=== PATIENT | male | born 1940 | race Caucasian/White ===

== ENCOUNTER 2017-09-28 15:26 | Outpatient (CLI) | payer MEDICARE, OTHER ==
--- NOTE | 2017-09-28 21:11 | MRI ---
LUMBAR SPINE MRI WITHOUT CONTRAST 09/28/17 COMPARISON: None. HISTORY: Lumbar spondylolisthesis. TECHNIQUE: Multiplanar and multisequence MR imaging of the lumbar spine is obtained without contrast. FINDINGS: The sagittal STIR imaging demonstrates no focal area of osseous marrow edema. There is a T2 hyperintense, T1 hypointense circumscribed lesion associated with the sacrum on the ri ght measuring 2.2 x 2.1 cm, extending into the region of the right S2 neural foramen suggesting a pr ominent perineural sleeve cyst/Tarlov cyst. There is a sigmoid diverticulosis, incompletely imaged o n this exam. Assuming five lumbar type vertebral bodies, the conus medullaris terminates at the T12-L1 level. T12-L1: There is mild bilateral facet hypertrophy. Intervertebral disc height and signal intensity i s within normal limits. No significant central canal or neural foraminal stenosis. L1-2: Mild bilateral facet hypertrophy. There is disc desiccation and minimal disc bulge with no sig nificant central canal or neural foraminal stenosis. L2-3: There is mild bilateral facet hypertrophy. There is minimal disc bulge with no significant chela tral canal or neural foraminal stenosis. L3-4: Bilateral facet hypertrophy noted, right greater than left. There is disc space narrowing, dis c desiccation and mild disc bulge with no significant central canal or neural foraminal stenosis. L4-5: There is anterolisthesis of L4 on L5 measuring approximately 6 mm. There is severe bilateral f acet hypertrophy with fluid within bilateral facet joints at L4-5. There is marked ligamentum flavum hypertrophy. These findings cause severe central canal stenosis at L4-5. There is moderate bilatera l neural foraminal stenosis. L5-S1: There is disc space narrowing and disc desiccation and vacuum disc formation. Bilateral facet hypertrophy. Mild bilateral neural foraminal stenosis. No significant central canal stenosis. IMPRESSION: 1. Multilevel lumbar spine degenerative change, most significant at the L4-5 level where there is severe facet hypertrophy, including facet joint fluid as well as anterolisthesis and severe centr al canal stenosis. Fluid within the facet joints at L4-5 may represent instability and thus, flexion and extension radiographs suggested. 2. Diverticulosis of sigmoid colon. 3. 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 POS: [facility]
== END 2017-09-28 15:27 | disposition home or self-care (01) ==
LOC: SCSMRI 15:26
PROVIDERS: ATTEND Neurological Surgery
DX: M43.16 Spondylolisthesis, lumbar region (principal); M47.816 Spondylosis without myelopathy or radiculopathy, lumbar region; M48.061 Spinal stenosis, lumbar region without neurogenic claudication; K57.30 Diverticulosis of large intestine without perforation or abscess without bleeding
CPT/HCPCS: 72148

== ENCOUNTER 2017-12-27 11:00 | Inpatient (IN) | payer MEDICARE, OTHER ==
[2018-01-02] MEDS ORDERED: CEFAZOLIN/Water 2 GM/20 ML SYRINGE ONE (06:33)
[2018-01-02] MEDS ORDERED: Fentanyl 100 MCG/2 ML VIAL ONE ×5 (06:41→10:42)
[2018-01-02] MEDS ORDERED: Sodium Chloride 0.9% 10 ML ONE (06:42)
[2018-01-02] MEDS ORDERED: Promethazine HCl 25 MG/ML VIAL IM/IV PRN (09:37)
[2018-01-02] MEDS ORDERED: Ondansetron HCl/PF 4 MG/2 ML Vial IVP PRN (09:37)
[2018-01-02] MEDS ORDERED: Mag-Al 1200 mg/1200 mg/30 ML UDCUP PO PRN (10:20)
[2018-01-02] MEDS ORDERED: tiZANidine HCl 4 MG TAB PO PRN (10:20)
[2018-01-02] MEDS ORDERED: Promethazine 25 MG TAB PO PRN (10:20)
[2018-01-02] MEDS ORDERED: Milk Of Magnesia 30 ML UDCUP PO PRN (10:20)
[2018-01-02] MEDS ORDERED: Promethazine HCl 12.5 MG SUPP PR PRN (10:20)
[2018-01-02] MEDS ORDERED: HYDROcodone/Acetaminophen 10/325 mg Tablet PO PRN (10:20)
[2018-01-02] MEDS ORDERED: traMADol HCl 50 MG TAB PO PRN ×2 (10:20)
[2018-01-02] MEDS ORDERED: Promethazine HCl 25 MG/ML VIAL IM PRN (10:20)
[2018-01-02] MEDS ORDERED: Ondansetron HCl/PF 4 MG/2 ML Vial IM PRN (10:21)
[2018-01-02] MEDS ORDERED: Morphine 5 MG/ML SYRINGE SLOW IVP PRN (10:25)
--- NOTE | 2018-01-02 11:26 | OP ---
DATE OF PROCEDURE: 01/02/2018 SURGEON: Star Person M.D. QUENCHING MACHINE OPERATOR: Osbaldo Lilly PA-C. PROCEDURES PERFORMED: L4-l5 laminectomy, posterolateral arthrodesis, pedicle screw instrumentation L 4-L5, demineralized bone matrix and local morselized autograft. PROCEDURE IN DETAIL: The patient was brought into the operating room, intubated. He was rolled in t he prone position on gel-filled chest rolls. An incision was made exposing L4 and L5 bilaterally and our level was confirmed by x-ray. We performed complete L5 and inferior L4 laminectomies, completel y decompressing L4-L5 interspace. Next, pedicle screws were placed at right L4 and right L5 using la teral fluoroscopic guidance. A maria del rosario was secured between the screws, connected by nuts, which were fin al tightened. The wound was then extensively irrigated, immaculate hemostasis was secured. A combin ation of demineralized bone matrix and local morselized autograft was laid over the left laminar and posterolateral surfaces for the purpose of arthrodesis. Vancomycin powder was applied and the wound was then closed in anatomic layers over a drain.
[2018-01-02 12:09] VITALS: BMI 25.9
[2018-01-02] MEDS ORDERED: Citrucel 500 MG TAB PO PRN (12:11)
--- NOTE | 2018-01-02 13:22 | PDOC.PN ---
- Subjective Encounter Start Date: 01/02/18 Encounter Start Time: 13:19 Subjective: s/p Lumbar laminectomy today.POD # 0.feels well -: no chest pain,sob,nausea/vomiting - Objective MAR Reviewed: Yes Vital Signs & Weight: Vital Signs (12 hours) Temp Pulse Resp BP Pulse Ox 01/02/18 11:05 96.5 F L 80 18 131/69 98 Weight Weight 171 lb I&O: 01/01/18 01/02/18 01/03/18 06:59 06:59 06:59 Intake Total 375 Balance 375 Phys Exam - Physical Examination Constitutional: NAD HEENT: PERRLA, moist MMs, sclera anicteric, oral pharynx no lesions Neck: no nodes, no JVD, supple, full ROM Respiratory: no wheezing, no rales, no rhonchi, clear to auscultation bilateral Cardiovascular: RRR, no significant murmur Gastrointestinal: soft, non-tender, no distention, positive bowel sounds Musculoskeletal: no edema, pulses present Neurological: non-focal, normal sensation, moves all 4 limbs Psychiatric: normal affect, A&O x 3 Skin: no rash Dx/Plan (1) HTN (hypertension) Code(s): I10 - ESSENTIAL (PRIMARY) HYPERTENSION Status: Chronic (2) Hypothyroid Code(s): E03.9 - HYPOTHYROIDISM, UNSPECIFIED Status: Chronic (3) S/P lumbar laminectomy Code(s): Z98.890 - OTHER SPECIFIED POSTPROCEDURAL STATES Status: Acute (4) COPD (chronic obstructive pulmonary disease) Status: Chronic - Plan out of bed/ambulate, DVT proph w/SCDs cont routine post-op care.Hemodynamically stable. -: cont home meds as started.pt wants to take his own. -: Check am labs. -: DVT/GI prophylaxis.Prn meds added. -: will follow * . Review of Systems - Review of Systems Constitutional: negative: fever, chills, sweats, weakness, malaise, other Respiratory: negative: Cough, Dry, Shortness of Breath, Hemoptysis, SOB with Excertion, Pleuritic Pain, Sputum, Wheezing Cardiovascular: negative: chest pain, palpitations, orthopnea, paroxysmal nocturnal dyspnea, edema, light headedness, other Gastrointestinal: negative: Nausea, Vomiting, Abdominal Pain, Diarrhea, Constipation, Melena, Hematochezia, Other Genitourinary: negative: Dysuria, Frequency, Incontinence, Hematuria, Retention , Other Musculoskeletal: negative: Neck Pain, Shoulder Pain, Arm Pain, Back Pain, Hand Pain, Leg Pain, Foot Pain, Other Skin: negative: Rash, Lesions, Gregg, Bruising, Other Neurological: negative: Weakness, Numbness, Incoordination, Change in Speech, Confusion, Seizures, Other - Medications/Allergies Allergies/Adverse Reactions: Allergies Allergy/AdvReac Type Severity Reaction Status Date / Time No Known Allergies Allergy Verified 12/27/17 12:00 Medications: Current Medications Hydrocodone Bitart/Acetaminophen ([place] 10/325) 1 tab PO Q4H PRN PRN Reason: PAIN (1-3) Hydrocodone Bitart/Acetaminophen ([place] 10/325) 2 tab PO Q4H PRN PRN Reason: PAIN (4-6) Al Hydroxide/Mg Hydroxide (Maalox) 30 ml PO Q4H PRN PRN Reason: Heartburn or Indigestion Albuterol/Ipratropium (Duoneb) 3 ml NEB [id number] [id number] Last Admin: 01/02/18 13:24 Dose: 3 ml Amlodipine Besylate (Norvasc) 20 mg PO HS [facility] Ascorbic Acid (Vitamin C) 500 mg PO HS [facility] Calcium/Vitamin D (Caltrate 600 + Vit D) 2 tab PO HS [facility] Cefazolin Sodium (Ancef) 2 gm SLOW IVP 0800,1600,2359 [facility] Sodium Chloride (Normal Saline 0.9%) 1,000 mls @ 75 mls/hr IV .[id number] [facility] Iron/Minerals/Multivitamins (Theragran M) 1 tab PO HS [facility] Latanoprost (Xalatan 0.005% Ophth Soln) 1 drop EA EYE HS [facility] Levothyroxine Sodium (Synthroid) 50 mcg PO 0600 [facility] Magnesium Hydroxide (Milk Of Magnesium) 30 ml PO Q12H PRN PRN Reason: Constipation Methylcellulose (Citrucel) 500 mg PO DAILYPRN PRN PRN Reason: . Morphine Sulfate (Morphine) 2 mg SLOW IVP Q1H PRN PRN Reason: Moderate Breakthrough Pain Morphine Sulfate (Morphine) 4 mg SLOW IVP Q1H PRN PRN Reason: Severe Breakthrough Pain Ondansetron HCl (Zofran) 4 mg IM Q6H PRN PRN Reason: Nausea/Vomiting Pantoprazole Sodium (Protonix) 40 mg PO BID-AC [facility] Potassium Chloride (Slow-K 8 Meq) 8 meq PO HS [facility] Promethazine HCl (Phenergan) 12.5 mg IM Q4H PRN PRN Reason: Nausea/Vomiting Promethazine HCl (Phenergan) 12.5 mg PO Q4H PRN PRN Reason: Nausea/Vomiting Promethazine HCl (Phenergan Suppository) 12.5 mg [place] Q4H PRN PRN Reason: Nausea/Vomiting Sodium Chloride (Flush - Normal Saline) 10 ml IVF PRN PRN PRN Reason: Saline Flush Tamsulosin HCl (Flomax) 0.4 mg PO HS [facility] Timolol Maleate (Timoptic 0.25% Oph Soln) 1 drop EA EYE BID [facility] Tizanidine HCl (Zanaflex) 4 mg PO Q6H PRN PRN Reason: MUSCLE SPASM Tramadol HCl (Ultram) 50 mg PO Q6H PRN PRN Reason: PAIN (1-3) Tramadol HCl (Ultram) 100 mg PO Q6H PRN PRN Reason: PAIN (4-6) History of Present Illnes - History of Present Illness Reason for Visit: Back pain. History of Present Illness: Pt seen and examined.s/p lumbar laminectomy by Dr. avalos today.IM team consulted for medical management. PCP out of town in [place] - Past Medical History Cardiac: HTN Pulmonary: COPD Endocrine: Hypothyroidism - Past Surgical History Past Surgical History: Cataract Removal, Other (deviated nasal septum.rotator cuff Sx B/L), Total Knee Replacement - Past Family History Family History: Hypertension - Past Social History Smoke: Quit (1985) Alcohol: None Drugs: None Lives: With Family
[2018-01-02] MEDS ORDERED: Diabetic Tussin 200 MG/10 ML UDCUP PO PRN (13:34)
[2018-01-02] MEDS ORDERED: Bisacodyl 5 MG TAB PO PRN (13:34)
[2018-01-02] MEDS ORDERED: hydrALAZINE 20 MG/ML VIAL SLOW IVP PRN (13:34)
[2018-01-02] MEDS ORDERED: Nitroglycerin 0.4 MG TAB (25 Tab Bottle) SL PRN (13:34)
[2018-01-02] MEDS ORDERED: cloNIDine 0.1 MG TAB PO PRN (13:34)
[2018-01-02] MEDS ORDERED: Senokot 8.6 MG TAB PO PRN (13:34)
[2018-01-02] MEDS ORDERED: Benzonatate 100 MG CAP PO PRN (13:34)
[2018-01-02] MEDS ORDERED: traZODone HCl 50 MG TAB PO PRN (13:34)
[2018-01-02] MEDS ORDERED: Loratadine 10 MG TAB PO PRN (13:34)
[2018-01-02] MEDS: HYDROcodone/Acetaminophen 10/325 mg Tablet PO PRN ×2 (13:41→18:05)
[2018-01-02] MEDS: Sodium Chloride 0.9% 1,000 ML IV SCH ×2 (13:44→23:57)
[2018-01-02] MEDS ORDERED: Ondansetron HCl/PF 4 MG/2 ML Vial ONE (15:25)
[2018-01-02] MEDS ORDERED: ePHEDrine/0.9% NaCl/PF SYRINGE 50 mg/10 ml ONE (15:25)
[2018-01-02] MEDS ORDERED: PHENYLEPHRINE-NS 100 MCG/ML 10 ML SYRINGE ONE (15:25)
[2018-01-02] MEDS ORDERED: Dexamethasone 20 MG/5 ML VIAL ONE (15:25)
[2018-01-02] MEDS ORDERED: Glycopyrrolate 0.2 MG/ML 5 ML SYRINGE ONE (15:25)
[2018-01-02] MEDS ORDERED: Lidocaine 1% PF 5 ML VIAL ONE (15:25)
[2018-01-02] MEDS ORDERED: PROPOFOL 200 MG/20 ML VIAL ONE (15:25)
[2018-01-02] MEDS: CEFAZOLIN/Water 2 GM/20 ML SYRINGE SLOW IVP SCH (17:12)
[2018-01-02] MEDS ORDERED: Multivitamin W/ Minerals 1 TAB PO SCH (21:00)
[2018-01-02] MEDS ORDERED: Calcium Carbonate + Vit D 1 TAB PO SCH (21:00)
[2018-01-02] MEDS ORDERED: Potassium Chloride 8 MEQ TAB PO SCH (21:00)
[2018-01-02] MEDS ORDERED: Latanoprost 0.005% Ophth Soln 2.5 ml Bottle EA EYE SCH (21:00)
[2018-01-02] MEDS ORDERED: Amlodipine 10 MG TAB PO SCH (21:00)
[2018-01-02] MEDS ORDERED: Ascorbic Acid 500 mg Chewable Tablet PO SCH (21:00)
[2018-01-02] MEDS ORDERED: Tamsulosin HCl 0.4 MG CAP PO SCH (21:00)
[2018-01-02] MEDS ORDERED: Melatonin 3 MG TAB PO SCH (21:00)
[2018-01-02] MEDS: Timolol 0.25% Ophth Soln 5 ml Bottle EA EYE SCH (21:21)
[2018-01-03] MEDS: CEFAZOLIN/Water 2 GM/20 ML SYRINGE SLOW IVP SCH ×2 (00:15→08:30)
[2018-01-03] MEDS ORDERED: Levothyroxine Sodium 50 MCG TAB PO SCH (06:00)
[2018-01-03] MEDS: Timolol 0.25% Ophth Soln 5 ml Bottle EA EYE SCH (08:32)
[2018-01-03 09:52] LABS: ALT (SGPT) 8 U/L (8-55); AST (SGOT) 19 U/L (5-34); Albumin 3.6 g/dL (3.4-4.8); Alkaline Phosphatase 53 U/L (40-150); Anion Gap 14 mmol/L (10-20); BUN (Urea Nitrogen) 17 mg/dL (8.4-25.7); Bilirubin, Total 0.6 mg/dL (0.2-1.2); Calc. Creatinine Clearance 76 mL/min (70-130); Calcium 8.9 mg/dL (7.8-10.44); Carbon Dioxide 24 mmol/L (23-31); Chloride 102 mmol/L (98-107); Estimated GFR-MDRD 86; Globulin 2.4 g/dL (2.4-3.5); Glucose 113 mg/dL (83-110); Potassium 4.6 mmol/L (3.5-5.1); Sodium 135 mmol/L (136-145)
[2018-01-03 09:54] LABS: #Lymphocytes 0.9 thou/uL (1.20-3.40); #Monocytes 0.7 thou/uL (0.11-0.59); %Basophils 0.1 % (0.0-1.0); %Eosinophils 0.3 % (0.0-10.0); %Monocytes 7.8 % (0.0-10.0); %Neutrophils 81.8 % (42.0-75.0); Hemoglobin 12.8 g/dL (14.0-18.0); Mean Corpuscular HGB CONC 32.9 g/dL (32.0-36.0); Mean Corpuscular Hemoglobin 32.5 pg (27.0-31.0); Mean Corpuscular Volume 98.9 fl (80.0-94.0); Mean Platelet Volume 8.9 fL (7.4-10.4); Platelet Count 141 thou/uL (130-400); RBC Distribution Width 12.1 % (11.5-14.5); Red Blood Cell (RBC) Count 3.93 mill/uL (4.70-6.10); White Blood Cell (WBC) Count 8.5 thou/uL (4.8-10.8)
[2018-01-03] MEDS ORDERED: Enoxaparin Sodium 40 MG/0.4 ML SYRINGE SC SCH (10:00)
[2018-01-03] MEDS: Sodium Chloride 0.9% 1,000 ML IV SCH (12:11)
[2018-01-03 12:41] VITALS: BP 117/68; TEMP 98.4
--- NOTE | 2018-01-03 14:25 | PDOC.PN ---
- Subjective Encounter Start Date: 01/03/18 Encounter Start Time: 14:23 Subjective: no new complaints. -: has still a " lot of discharge coming out in BARB drain" - Objective MAR Reviewed: Yes Vital Signs & Weight: Vital Signs (12 hours) Temp Pulse Resp BP Pulse Ox 01/03/18 12:40 98.4 F 82 16 117/68 98 01/03/18 12:03 90 14 01/03/18 08:00 97.5 F L 73 18 01/03/18 07:33 89 14 98 01/03/18 04:50 98.8 F 78 18 125/74 95 Weight Admit Weight 171 lb Weight 171 lb I&O: 01/02/18 01/03/18 01/04/18 06:59 06:59 06:59 Intake Total 2575 Output Total 1485 100 Balance 1090 -100 Result Diagrams: 01/03/18 09:22 01/03/18 09:22 Radiology Reviewed by me: Yes Phys Exam - Physical Examination Constitutional: NAD HEENT: PERRLA, moist MMs, sclera anicteric, oral pharynx no lesions Neck: no nodes, no JVD, supple, full ROM Respiratory: no wheezing, no rales, no rhonchi, clear to auscultation bilateral Cardiovascular: RRR, no significant murmur Gastrointestinal: soft, non-tender, no distention, positive bowel sounds Musculoskeletal: no edema, pulses present Neurological: non-focal, normal sensation, moves all 4 limbs Psychiatric: normal affect, A&O x 3 Skin: no rash Dx/Plan (1) HTN (hypertension) Code(s): I10 - ESSENTIAL (PRIMARY) HYPERTENSION Status: Chronic (2) Hypothyroid Code(s): E03.9 - HYPOTHYROIDISM, UNSPECIFIED Status: Chronic (3) S/P lumbar laminectomy Code(s): Z98.890 - OTHER SPECIFIED POSTPROCEDURAL STATES Status: Acute (4) COPD (chronic obstructive pulmonary disease) Status: Chronic - Plan respiratory therapy, incentive spirometry, out of bed/ambulate, DVT proph w/SCDs HD stable. BP controlled -: monitor BARB drainage per NS * . Review of Systems - Review of Systems Constitutional: negative: fever, chills, sweats, weakness, malaise, other Respiratory: negative: Cough, Dry, Shortness of Breath, Hemoptysis, SOB with Excertion, Pleuritic Pain, Sputum, Wheezing Cardiovascular: negative: chest pain, palpitations, orthopnea, paroxysmal nocturnal dyspnea, edema, light headedness, other Gastrointestinal: negative: Nausea, Vomiting, Abdominal Pain, Diarrhea, Constipation, Melena, Hematochezia, Other Genitourinary: negative: Dysuria, Frequency, Incontinence, Hematuria, Retention , Other Musculoskeletal: negative: Neck Pain, Shoulder Pain, Arm Pain, Back Pain, Hand Pain, Leg Pain, Foot Pain, Other Neurological: negative: Weakness, Numbness, Incoordination, Change in Speech, Confusion, Seizures, Other - Medications/Allergies Allergies/Adverse Reactions: Allergies Allergy/AdvReac Type Severity Reaction Status Date / Time No Known Allergies Allergy Verified 12/27/17 12:00 Medications: Current Medications Hydrocodone Bitart/Acetaminophen ([place] 10/325) 1 tab PO Q4H PRN PRN Reason: PAIN (1-3) Last Admin: 01/02/18 18:05 Dose: 1 tab Hydrocodone Bitart/Acetaminophen ([place] 10/325) 2 tab PO Q4H PRN PRN Reason: PAIN (4-6) Al Hydroxide/Mg Hydroxide (Maalox) 30 ml PO Q4H PRN PRN Reason: Heartburn or Indigestion Albuterol/Ipratropium (Duoneb) 3 ml NEB [id number] [facility] Last Admin: 01/03/18 12:03 Dose: 3 ml Amlodipine Besylate (Norvasc) 20 mg PO [facility] Last Admin: 01/02/18 21:17 Dose: Not Given Ascorbic Acid (Vitamin C) 500 mg PO [facility] Last Admin: 01/02/18 21:20 Dose: Not Given Benzonatate (Tessalon) 100 mg PO Q4H PRN PRN Reason: Cough Bisacodyl (Dulcolax) 10 mg PO DAILYPRN PRN PRN Reason: Constipation Calcium/Vitamin D (Caltrate 600 + Vit D) 2 tab PO [facility] Last Admin: 01/02/18 21:20 Dose: Not Given Cefazolin Sodium (Ancef) 2 gm SLOW IVP 0800,1600,2359 [facility] Last Admin: 01/03/18 08:30 Dose: 2 gm Clonidine (Catapres) 0.1 mg PO Q4H PRN PRN Reason: Systolic BP > 160 Enoxaparin Sodium (Lovenox) 40 mg SC 0900 [facility] Guaifenesin (Robitussin Sf) 200 mg PO Q4H PRN PRN Reason: Cough Hydralazine HCl (Apresoline) 10 mg SLOW IVP Q4H PRN PRN Reason: Systolic BP > 170 Sodium Chloride (Normal Saline 0.9%) 1,000 mls @ 75 mls/hr IV .[id number] [facility] Last Admin: 01/03/18 12:11 Dose: Not Given Iron/Minerals/Multivitamins (Theragran M) 1 tab PO [facility] Last Admin: 01/02/18 21:21 Dose: Not Given Latanoprost (Xalatan 0.005% [facility] Sol) 1 drop EA EYE [facility] Last Admin: 01/02/18 21:21 Dose: Not Given Levothyroxine Sodium (Synthroid) 50 mcg PO 0600 [facility] Last Admin: 01/03/18 06:17 Dose: Not Given Loratadine (Claritin) 10 mg PO DAILYPRN PRN PRN Reason: Sinus Symptoms Magnesium Hydroxide (Milk Of Magnesium) 30 ml PO Q12H PRN PRN Reason: Constipation Methylcellulose (Citrucel) 500 mg PO DAILYPRN PRN PRN Reason: . Morphine Sulfate (Morphine) 2 mg SLOW IVP Q1H PRN PRN Reason: Moderate Breakthrough Pain Morphine Sulfate (Morphine) 4 mg SLOW IVP Q1H PRN PRN Reason: Severe Breakthrough Pain Nitroglycerin (Nitrostat) 0.4 mg SL Q5MIN PRN PRN Reason: Chest Pain Ondansetron HCl (Zofran) 4 mg IM Q6H PRN PRN Reason: Nausea/Vomiting Pantoprazole Sodium (Protonix) 40 mg PO BID-AC [facility] Last Admin: 01/03/18 08:31 Dose: Not Given Potassium Chloride (Slow-K 8 Meq) 8 meq PO [facility] Last Admin: 01/02/18 21:21 Dose: Not Given Promethazine HCl (Phenergan) 12.5 mg IM Q4H PRN PRN Reason: Nausea/Vomiting Promethazine HCl (Phenergan) 12.5 mg PO Q4H PRN PRN Reason: Nausea/Vomiting Promethazine HCl (Phenergan Suppository) 12.5 mg AR Q4H PRN PRN Reason: Nausea/Vomiting Senna (Senokot) 2 tab PO HSPRN PRN PRN Reason: Constipation Sodium Chloride (Flush - Normal Saline) 10 ml IVF PRN PRN PRN Reason: Saline Flush Last Admin: 01/03/18 00:15 Dose: 10 ml Tamsulosin HCl (Flomax) 0.4 mg PO [facility] Last Admin: 01/02/18 21:21 Dose: Not Given Timolol Maleate (Timoptic 0.25% Oph Soln) 1 drop EA EYE BID [facility] Last Admin: 01/03/18 08:32 Dose: Not Given Tizanidine HCl (Zanaflex) 4 mg PO Q6H PRN PRN Reason: MUSCLE SPASM Last Admin: 01/02/18 15:06 Dose: 4 mg Tramadol HCl (Ultram) 50 mg PO Q6H PRN PRN Reason: PAIN (1-3) Tramadol HCl (Ultram) 100 mg PO Q6H PRN PRN Reason: PAIN (4-6) Trazodone HCl (Desyrel) 50 mg PO HSPRN PRN PRN Reason: Insomnia
[2018-01-04] MEDS ORDERED: Enoxaparin Sodium 40 MG/0.4 ML SYRINGE SC SCH (09:00)
== END 2018-01-03 15:42 | disposition home or self-care (01) | DRG 460 ==
LOC: SURG A 01-02 05:59
PROVIDERS: ADMIT Neurological Surgery; ATTEND Neurological Surgery
PROC: 0SG0071 Fusion of Lumbar Vertebral Joint with Autologous Tissue Substitute, Posterior Approach, Posterior Column, Open Approach (ICD-10-PCS; principal; 2018-01-02)
DX: M43.06 Spondylolysis, lumbar region (principal); J44.9 Chronic obstructive pulmonary disease, unspecified; E03.9 Hypothyroidism, unspecified; I10 Essential (primary) hypertension; M48.061 Spinal stenosis, lumbar region without neurogenic claudication; K21.9 Gastro-esophageal reflux disease without esophagitis; M19.90 Unspecified osteoarthritis, unspecified site; N40.0 Benign prostatic hyperplasia without lower urinary tract symptoms; Z87.891 Personal history of nicotine dependence
CPT/HCPCS: 36415; 76001; 80053; 85025; 94640; A4216; C1713; C1768; G8978-GP-CI; G8979-GP-CI; G8980-GP-CI; J1100; J1650; J2001; J2405; J2704; J3010; J3370; J3490; J7620

== ENCOUNTER 2017-12-27 11:27 | Outpatient (CLI) | payer MEDICARE, OTHER ==
[2017-12-27 14:43] LABS: Hemoglobin 15.3 g/dL (14.0-18.0); Mean Corpuscular HGB CONC 33.1 g/dL (32.0-36.0); Mean Corpuscular Hemoglobin 31.8 pg (27.0-31.0); Mean Platelet Volume 7.4 fL (7.4-10.4); Platelet Count 266 thou/uL (130-400); RBC Distribution Width 11.8 % (11.5-14.5); Red Blood Cell (RBC) Count 4.82 mill/uL (4.70-6.10); White Blood Cell (WBC) Count 7.4 thou/uL (4.8-10.8)
[2017-12-27 15:47] LABS: Anion Gap 14 mmol/L (10-20); BUN (Urea Nitrogen) 25 mg/dL (8.4-25.7); Calc. Creatinine Clearance 0 mL/min (70-130); Calcium 9.9 mg/dL (7.8-10.44); Carbon Dioxide 25 mmol/L (23-31); Chloride 102 mmol/L (98-107); Estimated GFR-MDRD 77; Glucose 95 mg/dL (83-110); Potassium 4.3 mmol/L (3.5-5.1); Sodium 137 mmol/L (136-145)
== END 2017-12-27 11:28 | disposition home or self-care (01) ==
LOC: LABBT 11:27
PROVIDERS: ATTEND Neurological Surgery
DX: Z01.818 Encounter for other preprocedural examination (principal); M54.16 Radiculopathy, lumbar region
CPT/HCPCS: 80048; 85027; 93005; 93010

== ENCOUNTER 2018-01-17 11:08 | Outpatient (CLI) | payer MEDICARE, OTHER ==
--- NOTE | 2018-01-17 13:28 | RAD ---
RADIOGRAPH LUMBAR SPINE 2 VIEWS: DATE: 01-17-18 HISTORY: 77-year-old male with lumbar spondylolisthesis and low back pain. COMPARISON: None. FINDINGS: There are 5 lumbar type vertebrae. Vertebral body heights are maintained. There are right unilateral right sided pedicle screws at L4 and L5. There is a midline laminectomy defect at L4-5. Grade I anter olisthesis of L4 on L5. Moderate disc space narrowing at L5-S1. The rest of the disc spaces are maint ained. IMPRESSION: 1. Unilateral right pedicle screws for stabilization of Grade I spondylolisthesis at L4-5. 2. Status post midline laminectomy at L4-5. ALFREDO POS: [facility]
== END 2018-01-17 11:09 | disposition home or self-care (01) ==
LOC: TBSIIMAG 11:08
PROVIDERS: ATTEND Physician Assistant
DX: M43.16 Spondylolisthesis, lumbar region (principal); Z98.1 Arthrodesis status
CPT/HCPCS: 72100

== ENCOUNTER 2018-03-02 15:06 | Outpatient (CLI) | payer MEDICARE, OTHER ==
--- NOTE | 2018-03-02 16:02 | RAD ---
TWO VIEWS LUMBAR SPINE: INDICATION: Followup surgery. COMPARISON: Prior exam dated 01/17/18. FINDINGS: Laminectomy change at L5 with right posterolateral spinal instrumentation at L4-5 is stable. The ins trumentation projects in the expected position. No gross palpitation is evident. Multilevel spondyl osis is stable. Vascular calcification is similar. IMPRESSION: Stable postoperative lumbar spine. POS: [facility]
--- NOTE | 2018-03-02 17:14 | RAD ---
RIGHT KNEE TWO VIEWS: 03/02/18 HISTORY: Right knee pain, history of fall. FINDINGS/IMPRESSION: There are postop changes of total knee arthroplasty in good position and alignment. No acute fracture or dislocation is identified. POS: [facility]
--- NOTE | 2018-03-02 17:29 | RAD ---
TWO VIEWS OF THE LEFT KNEE 03/02/18 INDICATION: Bilateral knee replacements with knee pain. COMPARISON: None. FINDINGS: There is a left total knee prosthesis that projects in the expected position. No acute fracture or toussaint bluxation is evident. No joint capsular distention is evident. IMPRESSION: Postoperative left knee. POS: [facility]
== END 2018-03-02 15:07 | disposition home or self-care (01) ==
LOC: TBSIIMAG 15:06
PROVIDERS: ATTEND Neurological Surgery
DX: M43.16 Spondylolisthesis, lumbar region (principal); M25.561 Pain in right knee; M25.562 Pain in left knee; Z96.653 Presence of artificial knee joint, bilateral; Z98.1 Arthrodesis status
CPT/HCPCS: 72100

== ENCOUNTER 2018-05-16 12:55 | Outpatient (CLI) | payer MEDICARE, OTHER ==
--- NOTE | 2018-05-16 14:06 | RAD ---
CHEST 2 VIEWS: HISTORY: Dyspnea. COMPARISON: None. FINDINGS: Lungs are clear. No pneumothorax or effusion. Cardiac silhouette and mediastinal contours within no rmal limits. No acute osseous abnormality. IMPRESSION: No acute intrathoracic abnormality. POS: [facility]
== END 2018-05-16 12:56 | disposition home or self-care (01) ==
LOC: RAD 12:55
PROVIDERS: ATTEND Internal Medicine Pulmonary Disease
DX: R06.00 Dyspnea, unspecified (principal)
CPT/HCPCS: 71046

== ENCOUNTER 2018-06-05 12:32 | Outpatient (CLI) | payer MEDICARE, OTHER ==
[2018-06-05 13:06] LABS: Estimated GFR-MDRD - POC Greater than 90
[2018-06-05] MEDS ORDERED: Gadobenate Dimeglumine 529 MG/1 ML (20ML VIAL) ONE (13:11)
== END 2018-06-05 12:33 | disposition home or self-care (01) ==
LOC: BICMRI 12:32
PROVIDERS: ATTEND Psychiatry & Neurology Neurology
DX: R42 Dizziness and giddiness (principal)
CPT/HCPCS: 70553; 82565; A9579

== ENCOUNTER 2018-07-26 11:14 | Outpatient (CLI) | payer MEDICARE, OTHER ==
--- NOTE | 2018-07-26 12:35 | RAD ---
CHEST TWO VIEWS: HISTORY: Dyspnea. COMPARISON: Chest radiograph from 05/16/2018. FINDINGS: The lungs are hypoinflated with vascular crowding. Multiple suture anchors project over the right hu merus with what appears to be a right suture anchor in the joint space. No acute osseous abnormality. IMPRESSION: 1. Lung hypoinflation with vascular crowding. 2. No acute intrathoracic abnormality. POS: [facility]
== END 2018-07-26 11:15 | disposition home or self-care (01) ==
LOC: RAD 11:14
PROVIDERS: ATTEND Internal Medicine Pulmonary Disease
DX: R06.00 Dyspnea, unspecified (principal); J98.4 Other disorders of lung
CPT/HCPCS: 71046

== ENCOUNTER 2018-09-26 13:17 | Outpatient (CLI) | payer MEDICARE, OTHER ==
[2018-09-26 13:56] LABS: Bilirubin Negative (Negative); Blood, Urine Negative (Negative); Clarity CLEAR (Clear); Glucose, Urine (Dipstick) Negative (Negative); Hemoglobin 14.6 g/dL (14.0-18.0); Leukocyte Negative (Negative); Mean Corpuscular HGB CONC 33.4 g/dL (32.0-36.0); Mean Corpuscular Hemoglobin 31.3 pg (27.0-31.0); Mean Corpuscular Volume 93.7 fL (78.0-98.0); Nitrite Negative (Negative); Platelet Count 239 thou/uL (130-400); Protein, Urine (Dipstick) Negative (Neg-Trace); RBC Distribution Width 11.8 % (11.5-14.5); Red Blood Cell (RBC) Count 4.66 mill/uL (4.70-6.10); Specific Gravity, Urine 1.004 (1.002-1.036); Urobilinogen 0.2 mg/dL (0.2-1.0); White Blood Cell (WBC) Count 6.3 thou/uL (4.8-10.8)
[2018-09-26 14:04] LABS: Bacteria/HPF None Seen HPF (None Seen); Hyaline Casts/LPF 0-3 HYALINE CAST LPF (0-3 Hyaline); RBC/HPF 0-3 HPF (0-3); Squamous Epithelial None Seen HPF (0-3); WBC/HPF None Seen HPF (0-3)
[2018-09-26 14:05] LABS: PTT 32.2 SEC (22.9-36.1); Prothrombin Time 13.7 SEC (12.0-14.7)
[2018-09-26 14:22] LABS: Anion Gap 11 mmol/L (10-20); BUN (Urea Nitrogen) 19 mg/dL (8.4-25.7); Calc. Creatinine Clearance 0 mL/min (70-130); Calcium 9.8 mg/dL (7.8-10.44); Carbon Dioxide 28 mmol/L (23-31); Chloride 103 mmol/L (98-107); Estimated GFR-MDRD 77; Glucose 98 mg/dL (83-110); Potassium 4.2 mmol/L (3.5-5.1); Sodium 138 mmol/L (136-145)
--- NOTE | 2018-09-27 10:20 | EKG ---
Test Reason : Blood Pressure : / mmHG Vent. Rate : 070 BPM Atrial Rate : 070 BPM P-R Int : 180 ms QRS Dur : 084 ms QT Int : 362 ms P-R-T Axes : 068 071 057 degrees QTc Int : 390 ms Sinus rhythm with marked sinus arrhythmia Cannot rule out Anterior infarct , age undetermined Abnormal ECG Confirmed by ZULEYMA BALLARD ([id number]) on 09/27/2018 10:19:59 AM Referred By: Confirmed By:ZULEYMA BALLARD
== END 2018-09-26 13:18 | disposition home or self-care (01) ==
LOC: LABBT 13:17
PROVIDERS: ATTEND Urology
DX: Z01.818 Encounter for other preprocedural examination (principal); N40.1 Benign prostatic hyperplasia with lower urinary tract symptoms
CPT/HCPCS: 80048; 81001; 85027; 85610; 85730; 87086; 93005; 93010

== ENCOUNTER 2018-10-05 05:53 | Observation (INO) | payer MEDICARE, OTHER ==
[2018-10-05] MEDS ORDERED: Fentanyl 100 MCG/2 ML VIAL ONE (06:49)
[2018-10-05] MEDS ORDERED: Levofloxacin 500 mg/D5W 100 ml Premix Bag ONE (07:26)
[2018-10-05] MEDS ORDERED: Bisacodyl 10 MG SUPP PR PRN (08:40)
[2018-10-05] MEDS ORDERED: Morphine 2 MG/ML SYRINGE IVP PRN (08:40)
[2018-10-05] MEDS ORDERED: hydrALAZINE 20 MG/ML VIAL SLOW IVP PRN (08:40)
[2018-10-05] MEDS ORDERED: Hyoscyamine Sulfate SL 0.125 mg Tablet SL PRN (08:40)
[2018-10-05] MEDS ORDERED: Acetaminophen 500 MG TAB PO PRN (08:40)
[2018-10-05] MEDS ORDERED: diphenhydrAMINE 25 MG CAP PO PRN (08:40)
[2018-10-05] MEDS ORDERED: traMADol HCl 50 MG TAB PO PRN (08:42)
[2018-10-05] MEDS ORDERED: Ondansetron PF 4 MG/2 ML Vial IVP PRN (08:42)
[2018-10-05] MEDS ORDERED: PROVENTIL INHALER 6.7 G (200 INHALATIONS) INH PRN (08:43)
[2018-10-05] MEDS ORDERED: Citrucel 500 MG TAB PO PRN (08:43)
[2018-10-05] MEDS ORDERED: Promethazine HCl 25 MG/ML VIAL SLOW IVP PRN (08:51)
[2018-10-05] MEDS ORDERED: Promethazine HCl 25 MG/ML VIAL IM PRN (08:51)
[2018-10-05] MEDS ORDERED: Ondansetron HCl/PF 4 MG/2 ML Vial IVP PRN (08:51)
--- NOTE | 2018-10-05 09:53 | OP ---
DATE OF OPERATION: 10/05/2018 SERVICE: Urology. SURGEON: Yonatan Montes M.D. PREOPERATIVE DIAGNOSES: Benign prostatic hypertrophy with lower urinary tract symptoms. POSTOPERATIVE DIAGNOSES: Benign prostatic hypertrophy with lower urinary tract symptoms. PROCEDURE PERFORMED: Transurethral vaporization of prostate. INDICATIONS FOR PROCEDURE: Mr. Vila is an 78-year-old white male who presented to [facility] with benign prostatic hypertrophy and urinary symptoms. He was put on Flomax with improvement in symptoms; vargas chantale, he does not like the idea of taking medication indefinitely and stated his symptoms are not tota lly treated with Flomax and did not want to take any more medications. As such, we discussed surgica l intervention and he has agreed to proceed forward with all risks and benefits discussed ahead of ti me. DESCRIPTION OF PROCEDURE: After identification of arm band and verification of consent, the patient was brought back to the operating room. He underwent general anesthesia with LMA. He was placed in the dorsal lithotomy position with all pressure points padded and prepped and draped in the usual mary rile fashion. After appropriate timeout, a lubricated 26 [place] visual obturator resectoscope sheath was placed through the urethra into the bladder. The visual obturator was removed and the bipolar b utton brought in for a prostate vaporization. A cystoscopy was performed and both ureters were found to be very far away from the bladder neck. Vaporization was started on the lateral lobes of the pro state and carried out circumferentially until the entire prostate was open. Relaxing incisions were made on the bladder neck at 5 and 7 o'clock to allow for a lower bladder neck. The intervening tissu e was then vaporized and repeat vaporization was performed to remove all bulky adenomatous tissue aft er the relaxing incisions. Upon completion, the prostate was wide open. Meticulous hemostasis was p erformed with the coag function. The bladder was drained and then the camera reinserted through the sheath to reinspect the prostate fossa, which showed extremely small amounts of bleeding. These area s were cauterized until no bleeding was identified. The prostate appeared wide open. Both ureters w ere in the orthotopic location unharmed. The bladder was refilled and the resectoscope removed. A 2 2-[place] three-way Park catheter with 30 mL of sterile water placed into the balloon was placed with ease into the bladder. CBI was initiated and the urine was very clear. The patient was taken out o f lithotomy affixed with a StatLock, awakened and taken to PACU for recovery in stable condition. COMPLICATIONS: None. ESTIMATED BLOOD LOSS: Minimal. RETAINED TUBES AND DRAINS: A 22-[place] 3-way Park catheter. SPECIMENS: None. DISPOSITION: The patient will be kept in the hospital for 23-hour observation. We will then plan a void trial in the morning and let him go home depending everything goes smoothly and there are no oth er health concerns.
[2018-10-05] MEDS ORDERED: Lidocaine 1% PF 5 ML VIAL ONE (10:52)
[2018-10-05] MEDS ORDERED: ePHEDrine/0.9% NaCl/PF SYRINGE 50 mg/10 ml ONE (10:52)
[2018-10-05] MEDS ORDERED: PROPOFOL 200 MG/20 ML VIAL ONE (10:52)
[2018-10-05] MEDS ORDERED: Ondansetron PF 4 MG/2 ML Vial ONE (10:52)
[2018-10-05] MEDS ORDERED: Glycopyrrolate 0.2 MG/ML 5 ML SYRINGE ONE (10:52)
[2018-10-05] MEDS ORDERED: PHENYLEPHRINE-NS 100 MCG/ML 10 ML SYRINGE ONE (10:52)
[2018-10-05] MEDS ORDERED: TRIAZOLAM 0.125 MG PO PRN (11:00)
[2018-10-05] MEDS ORDERED: THYROXINE 50 MCG PO SCH (11:30)
[2018-10-05 15:55] VITALS: BMI 26.9
[2018-10-05] MEDS: Docusate 100 MG CAP PO SCH ×2 (17:40→21:17)
[2018-10-05] MEDS: Timolol 0.25% Ophth Soln 5 ml Bottle EA EYE SCH ×2 (17:40→21:17)
[2018-10-05] MEDS ORDERED: Latanoprost 0.005% Ophth Soln 2.5 ml Bottle EA EYE SCH (21:00)
[2018-10-05] MEDS ORDERED: Amlodipine 10 MG TAB PO SCH (21:00)
[2018-10-06 05:54] LABS: #Eosinphils 0.1 thou/uL (0.0-0.7); #Lymphocytes 0.7 thou/uL (1.20-3.40); #Monocytes 0.4 thou/uL (0.11-0.59); #Neutrophils 3.9 thou/uL (1.40-6.50); %Basophils 0.4 % (0.0-1.0); %Eosinophils 1.2 % (0.0-10.0); %Lymphocytes 14.3 % (21.0-51.0); %Monocytes 7.3 % (0.0-10.0); %Neutrophils 76.9 % (42.0-75.0); Hemoglobin 13.1 g/dL (14.0-18.0); Mean Corpuscular HGB CONC 32.8 g/dL (32.0-36.0); Mean Corpuscular Hemoglobin 31.1 pg (27.0-31.0); Mean Corpuscular Volume 94.9 fL (78.0-98.0); Mean Platelet Volume 7.1 fL (7.4-10.4); Platelet Count 218 thou/uL (130-400); RBC Distribution Width 12.1 % (11.5-14.5); Red Blood Cell (RBC) Count 4.22 mill/uL (4.70-6.10)
[2018-10-06 06:09] LABS: Anion Gap 10 mmol/L (10-20); BUN (Urea Nitrogen) 14 mg/dL (8.4-25.7); Calc. Creatinine Clearance 80 mL/min (70-130); Calcium 8.9 mg/dL (7.8-10.44); Carbon Dioxide 26 mmol/L (23-31); Chloride 106 mmol/L (98-107); Estimated GFR-MDRD 88; Glucose 101 mg/dL (83-110); Potassium 4.1 mmol/L (3.5-5.1); Sodium 138 mmol/L (136-145)
[2018-10-06] MEDS: Docusate 100 MG CAP PO SCH (08:33)
[2018-10-06] MEDS: Timolol 0.25% Ophth Soln 5 ml Bottle EA EYE SCH (08:33)
[2018-10-06 11:07] VITALS: BP 116/65; TEMP 97.7
--- NOTE | 2018-10-06 15:08 | PRG ---
DATE OF SERVICE: 10/06/2018 SUBJECTIVE: The patient states he had a great night. No pain. No bladder spasms. No complaints of any kind. His CBI was stopped this morning and his urine was very clear without any blood visible. His catheter was removed and the patient has had 2 voids, which have very little blood. He denied a ny burning. He feels great. He denies any chest pain or shortness of breath. OBJECTIVE: VITAL SIGNS: Temperature 97.4, pulse 84, respirations 20, blood pressure 116/65, saturation 92% on r oom air. GENERAL: No apparent distress, communicative, alert. CARDIOVASCULAR: Regular rate and rhythm. CHEST: No increased work of breathing, clear anteriorly. ABDOMEN: Soft, nontender, nondistended. Positive bowel sounds. GENITOURINARY: Park catheter had no blood in it. It was completely yellow. It was removed and the n subsequent voids have been a peach to very mild or minimal hematuria. EXTREMITIES: No clubbing, cyanosis or edema. LABORATORY DATA: The full set of labs is in the [facility] system, which I have reviewed. Of note, th e patient's white count is 5 and hemoglobin is 13.1. Creatinine is 0.84. ASSESSMENT AND PLAN: An 78-year-old white male status post transurethral vaporization of the prostat e, postoperative day 1, doing excellent. He has passed his void trial with almost no bleeding. He h as no symptoms or pain. He can be discharged home and can follow up with me in 1 week for a postop lissa beltrán.
--- NOTE | 2018-10-06 23:32 | DIS ---
DATE OF ADMISSION: 10/05/2018 DATE OF DISCHARGE: 10/06/2018 ADMITTING PHYSICIAN: Yonatan Montes M.D. DISCHARGING PHYSICIAN: Yonatan Montes M.D. ADMITTING DIAGNOSIS: Benign prostatic hypertrophy with urinary obstruction. DISCHARGE DIAGNOSIS: Benign prostatic hypertrophy with urinary obstruction. PROCEDURE PERFORMED WHILE INPATIENT: Transurethral vaporization of the prostate. BRIEF HISTORY OF PRESENT ILLNESS: Mr. Vila is an 78-year-old white male with benign prostatic hy pertrophy and urinary symptoms, currently on Flomax. He does not wish to remain on medications and w ishes to urinate better. He decided to go for surgery with all risks and benefits discussed. HOSPITAL COURSE: After surgery (please see operative note for details), the patient was kept in the hospital overnight for continuous bladder irrigation for hematuria. He had no blood overnight and CB I was stopped in the morning. His catheter was removed. The patient voided twice with good large vo lume void without any dysuria, pain or any significant bleeding in the urine. We went over discharge instructions and he was discharged home without problems. DISPOSITION: Discharge to home. DISCHARGE CONDITION: Good. DISCHARGE MEDICATIONS: Please see MAR. DISCHARGE INSTRUCTIONS: Include no heavy lifting over 20 pounds, no strenuous activity, avoiding con stipation and staying well hydrated with at least 2 liters of water a day. He is to notify us for si gnificant shortness of breath, chest pain, lower extremity swelling, inability to urinate, severe ble eding or any other concerning signs or symptoms that he may have. FOLLOWUP: Will be in 1 week for a postop check.
== END 2018-10-06 15:48 | disposition home or self-care (01) ==
LOC: SDC 05:53 → SJJU 15:33
PROVIDERS: ADMIT Urology; ATTEND Urology
PROC: 0V508ZZ Destruction of Prostate, Via Natural or Artificial Opening Endoscopic (ICD-10-PCS; principal; 2018-10-05)
DX: N40.1 Benign prostatic hyperplasia with lower urinary tract symptoms (principal); N13.8 Other obstructive and reflux uropathy; E03.9 Hypothyroidism, unspecified; J44.9 Chronic obstructive pulmonary disease, unspecified; K21.9 Gastro-esophageal reflux disease without esophagitis; I10 Essential (primary) hypertension; Z79.899 Other long term (current) drug therapy
CPT/HCPCS: 52648; 80048; 85025; 94640 ×2; 96365; G0378; 36415; J1956; J2001; J2405; J2704; J3010; J7620

== ENCOUNTER 2019-05-25 12:03 | Outpatient (CLI) | payer MEDICARE, OTHER ==
--- NOTE | 2019-05-25 14:25 | ULT ---
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 COMPARISON: None. TECHNIQUE: Palomino-scale evaluation of intrascrotal contents. Color flow Doppler and spectral waveform analysis of the testicles. FINDINGS: Right testicle: 3.8 x 2.4 x 2.9 cm. Left testicle: 3.7 x 1.8 x 2.3 cm. Right epididymal head: 0.9 x 1.1 x 0.8 cm. Left epididymal head: 1.1 1.4 x 1.2 cm. Blood flow is demonstrated into both testicles by Doppler. Large region of tubular ectasia of the rete testis occupying approximately 20% volume of the right te sticle. Several discrete small intraparenchymal cysts in the left testicle. The largest one is 0.5 x 0.4 x 0 .6 cm. No solid testicular neoplastic tumor identified. Two extratesticular, intrascrotal right thin-walled cysts. The larger is 3.9 x 4.7 x 2.6 cm. The sm aller one is 1.4 x 1.2 x 1.1 cm. IMPRESSION: 1. Two right-sided spermatoceles. The larger one is 4.7 cm. 2. 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 3. A few small intratesticular cysts on the left. ALFREDO Ceballos POS: DMITRY
== END 2019-05-25 12:04 | disposition home or self-care (01) ==
LOC: BICULT 12:03
PROVIDERS: ATTEND Urology
DX: N43.42 Spermatocele of epididymis, multiple (principal); N44.2 Benign cyst of testis; N50.89 Other specified disorders of the male genital organs
CPT/HCPCS: 76870; 93976

== ENCOUNTER 2019-11-14 08:23 | Outpatient (CLI) | payer MEDICARE, OTHER ==
--- NOTE | 2019-11-14 10:13 | RAD ---
CHEST TWO VIEWS: HISTORY: Bronchitis. Cough. COMPARISON: 07/26/2018 FINDINGS: Minimal stable increased linear and interstitial markings bilaterally. No confluent pneumonia or over t edema. No pleural effusion. IMPRESSION: 1. Stable increased markings bilaterally. 2. 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 3. No new process. 4. No evidence for pneumonia. POS: TPC
== END 2019-11-14 08:24 | disposition home or self-care (01) ==
LOC: BICRAD 08:23
PROVIDERS: ATTEND Family Medicine
DX: J40 Bronchitis, not specified as acute or chronic (principal); R91.8 Other nonspecific abnormal finding of lung field; Z98.890 Other specified postprocedural states
CPT/HCPCS: 36415; 71046; 80053; 80061; 85025

== ENCOUNTER 2020-11-17 10:24 | Outpatient (CLI) | payer MEDICARE, OTHER ==
--- NOTE | 2020-11-17 10:57 | CT ---
EXAM: CT Chest High Resolution PROVIDED CLINICAL HISTORY: Shortness of breath COMPARISON: None FINDINGS: The heart, pericardium and great vessels are suboptimally evaluated in the absence of IV contrast mat erial. Vascular calcification including coronary calcium is demonstrated. There is no evidence for thoracic lymph node enlargement with limitations due to lack of IV contrast. Several scattered sub-4 mm noncalcified nodular densities. The lungs are free of significant opacity. There is no evidence for interstitial thickening. No significant consolidation, groundglass opacity or concerning nodule. The airway appears patent and of normal caliber. No pleural fluid, pleural thickening or pneumothorax apparent. The visualized portions of the upper abdomen demonstrate no significant abnormality. The osseous structures demonstrate no concerning lytic or blastic lesions. IMPRESSION: 1. No evidence for interstitial lung disease. 2. Vascular calcification including coronary calcium.
== END 2020-11-17 10:25 | disposition home or self-care (01) ==
LOC: BICCT 10:24
PROVIDERS: ATTEND Family Medicine
DX: R06.02 Shortness of breath (principal); I25.10 Atherosclerotic heart disease of native coronary artery without angina pectoris
CPT/HCPCS: 71250

== ENCOUNTER 2021-12-28 12:50 | Outpatient (CLI) | payer MEDICARE, OTHER ==
[2021-12-28 15:26] LABS: Bilirubin Neg (Negative); Blood, Urine 10 (Negative); Clarity Clear (Clear); Glucose, Urine (Dipstick) Normal (Negative); Ketone, Urine Negative (Negative); Leukocyte Negative (Negative); Nitrite Negative (Negative); Protein, Urine (Dipstick) Negative (Neg-Trace); Specific Gravity, Urine 1.015 (1.002-1.036); Urobilinogen Normal mg/dL (Less than 2)
[2021-12-28 15:33] LABS: Hemoglobin 14.7 g/dL (13.5-17.5); Mean Corpuscular HGB CONC 33.1 g/dL (32.0-36.0); Mean Corpuscular Hemoglobin 30.3 pg (27.0-33.0); Mean Corpuscular Volume 91.5 fl (81.2-95.1); Mean Platelet Volume 10.3 fl (7.4-10.4); Platelet Count 261 10x3/uL (150-450); RBC Distribution Width 12.3 % (11.5-14.5); Red Blood Cell (RBC) Count 4.85 10x6/uL (4.32-5.72); White Blood Cell (WBC) Count 5.9 10x3/uL (3.5-10.5)
[2021-12-28 15:41] LABS: Anion Gap 13 mmol/L (10-20); BUN (Urea Nitrogen) 26 mg/dL (8.4-25.7); Calc. Creatinine Clearance 0 mL/min (70-130); Calcium 9.4 mg/dL (7.8-10.44); Carbon Dioxide 24 mmol/L (23-31); Chloride 106 mmol/L (98-107); Glucose 99 mg/dL (83-110); PTT 26.2 sec (22.0-33.0); Potassium 4.4 mmol/L (3.5-5.1); Prothrombin Time 10.8 sec (9.5-12.1); Sodium 139 mmol/L (136-145)
[2021-12-28 15:49] LABS: Bacteria/HPF Rare-Few HPF (None Seen); RBC/HPF 0-3 HPF (0-3); Squamous Epithelial 0-3 HPF (0-3); WBC/HPF None Seen HPF (0-3)
[2021-12-29 08:27] LABS: SARS-CoV-2 PCR by NAA Not Detected (NotDetected)
== END 2021-12-28 12:51 | disposition home or self-care (01) ==
LOC: LABBT 12:50
PROVIDERS: ATTEND Urology
DX: Z01.818 Encounter for other preprocedural examination (principal); Z20.822 Contact with and (suspected) exposure to COVID-19
CPT/HCPCS: 71046; 80048; 81001; 85027; 85610; 85730; 87086; U0003; U0005; 93005; 93010

== ENCOUNTER 2021-12-31 09:18 | Day surgery (SDC) | payer MEDICARE, OTHER ==
[2021-12-24 13:34] VITALS: BMI 27.6
[2021-12-31] MEDS ORDERED: Bupivacaine 0.25% HCL 30 ML VIAL ONE (09:37)
[2021-12-31] MEDS ORDERED: Fentanyl 100 MCG/2 ML VIAL ONE ×2 (09:50)
[2021-12-31] MEDS ORDERED: Sodium Chloride 0.9% 100 ML ONE (10:19)
[2021-12-31] MEDS ORDERED: CEFAZOLIN 1 GM VIAL ONE (10:19)
== END 2021-12-31 13:45 | disposition home or self-care (01) ==
LOC: SDC 09:18
PROVIDERS: ATTEND Urology
PROC: 0VBJ0ZZ Excision of Right Epididymis, Open Approach (ICD-10-PCS; principal; 2021-12-31)
DX: N43.41 Spermatocele of epididymis, single (principal); G89.29 Other chronic pain; K21.9 Gastro-esophageal reflux disease without esophagitis; I10 Essential (primary) hypertension; J44.9 Chronic obstructive pulmonary disease, unspecified; Z79.899 Other long term (current) drug therapy; Z98.1 Arthrodesis status
CPT/HCPCS: 88304; J0690; J3010; J3490; S0020

== ENCOUNTER 2022-04-15 12:36 | Outpatient (CLI) | payer MEDICARE, OTHER | END 2022-04-15 12:37 | disposition home or self-care (01) | LOC: TBSIIMAG 12:36 | PROVIDERS: ATTEND Neurological Surgery | DX: M54.50 Low back pain, unspecified (principal); M47.816 Spondylosis without myelopathy or radiculopathy, lumbar region; M47.817 Spondylosis without myelopathy or radiculopathy, lumbosacral region; N32.3 Diverticulum of bladder; Z98.890 Other specified postprocedural states | CPT/HCPCS: 72158; 82565 ==

== ENCOUNTER 2022-07-27 09:45 | Outpatient (CLI) | payer OTHER | END 2022-07-27 09:46 | disposition home or self-care (01) | LOC: DTY/OP 09:45 | PROVIDERS: ATTEND Family Medicine | DX: E78.2 Mixed hyperlipidemia (principal) | CPT/HCPCS: 97802 ==

== ENCOUNTER 2022-08-13 12:02 | Emergency (ER) | payer MEDICARE, OTHER ==
[2022-08-13 13:07] LABS: #Eosinphils 0.1 thou/uL (0.0-0.7); #Lymphocytes 1.7 thou/uL (1.20-3.40); #Monocytes 0.3 thou/uL (0.11-0.59); #Neutrophils 3.3 thou/uL (1.40-6.50); %Basophils 0.7 % (0.0-1.0); %Eosinophils 1.6 % (0.0-10.0); %Lymphocytes 30.5 % (21.0-51.0); %Monocytes 6.2 % (0.0-10.0); %Neutrophils 61.1 % (42.0-75.0); Hemoglobin 15.3 g/dL (14.0-18.0); Mean Corpuscular HGB CONC 33.3 g/dL (32.0-36.0); Mean Corpuscular Hemoglobin 31.8 pg (27.0-31.0); Mean Corpuscular Volume 95.3 fL (78.0-98.0); Mean Platelet Volume 8.8 fL (7.4-10.4); Platelet Count 210 thou/uL (130-400); RBC Distribution Width 11.9 % (11.5-14.5); Red Blood Cell (RBC) Count 4.82 mill/uL (4.70-6.10); White Blood Cell (WBC) Count 5.4 thou/uL (4.8-10.8)
[2022-08-13 13:35] LABS: ALT (SGPT) 13 U/L (8-55); AST (SGOT) 18 U/L (5-34); Albumin 4.5 g/dL (3.4-4.8); Alkaline Phosphatase 66 U/L (40-110); Anion Gap 17 mmol/L (10-20); BUN (Urea Nitrogen) 22 mg/dL (8.4-25.7); Bilirubin, Total 0.6 mg/dL (0.2-1.2); CK (CPK) 62 U/L (30-200); Calc. Creatinine Clearance 0 mL/min (70-130); Calcium 10.1 mg/dL (7.8-10.44); Carbon Dioxide 22 mmol/L (23-31); Chloride 103 mmol/L (98-107); Estimated GFR 75; Globulin 2.8 g/dL (2.4-3.5); Glucose 105 mg/dL (83-110); Lipase 15 U/L (8-78); Potassium 4.4 mmol/L (3.5-5.1); Protein, Total 7.3 g/dL (5.8-8.1); Sodium 138 mmol/L (136-145)
== END 2022-08-13 15:00 | disposition home or self-care (01) ==
LOC: ERS 12:02
DX: I49.3 Ventricular premature depolarization (principal); I10 Essential (primary) hypertension; E78.5 Hyperlipidemia, unspecified; Z79.899 Other long term (current) drug therapy; I48.0 Paroxysmal atrial fibrillation; R94.39 Abnormal result of other cardiovascular function study; Z23 Encounter for immunization; E03.9 Hypothyroidism, unspecified; E78.2 Mixed hyperlipidemia
CPT/HCPCS: 71045; 80053; 82550; 83690; 84484; 85025; 90662; 93005; 99285; G0008; G0463; 36415; 90471; 99214

== ENCOUNTER 2022-09-23 10:21 | Outpatient (CLI) | payer MEDICARE, OTHER ==
[2022-09-23 11:57] LABS: #Eosinphils 0.1 10x3/uL (0.0-0.5); #Monocytes 0.5 10x3/uL (0.0-1.1); #Neutrophils 4.1 10x3/uL (1.5-8.4); %Basophils 0.5 % (0.0-2.0); %Eosinophils 0.8 % (0.0-6.0); %Lymphocytes 23.6 % (18.0-47.0); %Neutrophils 66.9 % (40.0-75.0); Hemoglobin 15.1 g/dL (13.5-17.5); Mean Corpuscular HGB CONC 34.8 g/dL (32.0-36.0); Mean Corpuscular Hemoglobin 31.9 pg (27.0-33.0); Mean Corpuscular Volume 91.6 fl (81.2-95.1); Mean Platelet Volume 11.1 fl (7.4-10.4); Platelet Count 221 10x3/uL (150-450); RBC Distribution Width 12.8 % (11.5-14.5); Red Blood Cell (RBC) Count 4.74 10x6/uL (4.32-5.72); White Blood Cell (WBC) Count 6.1 10x3/uL (3.5-10.5)
[2022-09-23 12:16] LABS: ALT (SGPT) 10 U/L (8-55); AST (SGOT) 17 U/L (5-34); Albumin 4.2 g/dL (3.4-4.8); Alkaline Phosphatase 54 U/L (40-110); Anion Gap 13 mmol/L (10-20); BUN (Urea Nitrogen) 23 mg/dL (8.4-25.7); Bilirubin, Total 0.8 mg/dL (0.2-1.2); Calc. Creatinine Clearance 0 mL/min (70-130); Calcium 9.4 mg/dL (7.8-10.44); Carbon Dioxide 26 mmol/L (23-31); Chloride 103 mmol/L (98-107); Estimated GFR 76; Globulin 2.1 g/dL (2.4-3.5); Glucose 90 mg/dL (83-110); Potassium 4.8 mmol/L (3.5-5.1); Protein, Total 6.3 g/dL (5.8-8.1); Sodium 137 mmol/L (136-145)
== END 2022-09-23 10:22 | disposition home or self-care (01) ==
LOC: LABBT 10:21
PROVIDERS: ATTEND Internal Medicine Cardiovascular Disease
DX: Z01.818 Encounter for other preprocedural examination (principal); I25.10 Atherosclerotic heart disease of native coronary artery without angina pectoris; R94.39 Abnormal result of other cardiovascular function study
CPT/HCPCS: 80053; 85025; 93005; 93010

== ENCOUNTER 2022-10-11 08:51 | Outpatient (CLI) | payer MEDICARE, OTHER | END 2022-10-11 08:52 | disposition home or self-care (01) | LOC: LABBT 08:51 | PROVIDERS: ATTEND Thoracic Surgery (Cardiothoracic Vascular Surgery) | DX: Z01.812 Encounter for preprocedural laboratory examination (principal); I25.10 Atherosclerotic heart disease of native coronary artery without angina pectoris | CPT/HCPCS: 80048; 85027; 86850; 86900; 86901 ==

== ENCOUNTER 2022-10-11 09:00 | Inpatient (IN) | payer MEDICARE, OTHER ==
[2022-10-11 09:44] LABS: Hemoglobin 14.8 g/dL (13.5-17.5); Mean Corpuscular HGB CONC 34.3 g/dL (32.0-36.0); Mean Corpuscular Hemoglobin 31.3 pg (27.0-33.0); Mean Corpuscular Volume 91.3 fl (81.2-95.1); Mean Platelet Volume 10.3 fl (7.4-10.4); Platelet Count 257 10x3/uL (150-450); RBC Distribution Width 12.6 % (11.5-14.5); Red Blood Cell (RBC) Count 4.73 10x6/uL (4.32-5.72); White Blood Cell (WBC) Count 6.6 10x3/uL (3.5-10.5)
[2022-10-11 10:09] LABS: Anion Gap 14 mmol/L (10-20); BUN (Urea Nitrogen) 23 mg/dL (8.4-25.7); Calc. Creatinine Clearance 0 mL/min (70-130); Calcium 9.1 mg/dL (7.8-10.44); Carbon Dioxide 23 mmol/L (23-31); Chloride 107 mmol/L (98-107); Estimated GFR 86; Glucose 110 mg/dL (83-110); Potassium 4.6 mmol/L (3.5-5.1); Sodium 139 mmol/L (136-145)
[2022-10-12] MEDS ORDERED: fentaNYL PF 100 MCG/2 ML SYRINGE ONE (06:16)
[2022-10-12] MEDS ORDERED: niCARdipine 25 MG/10 ML VIAL ONE (06:17)
[2022-10-12] MEDS ORDERED: Midazolam HCl 5 mg/5 ml Vial ONE (06:17)
[2022-10-12] MEDS ORDERED: Phenylephrine 10 MG/ML VIAL ONE (06:18)
[2022-10-12] MEDS ORDERED: Dexamethasone 4 mg/ml Vial ONE (06:37)
[2022-10-12] MEDS ORDERED: Bupivacaine HCl 0.5%/Epinephrine 1:200,000/PF 30 ml Vial ONE (06:37)
[2022-10-12] MEDS ORDERED: PHENYLEPHRINE-NS 100 MCG/ML 10 ML SYRINGE ONE ×2 (06:37→07:16)
[2022-10-12] MEDS ORDERED: Albumin 5% 250 ML ONE (06:38)
[2022-10-12] MEDS ORDERED: Heparin 10,000 UNITS/1 ML VIAL 30,000 UNITS in Sodium Chloride 0.9% 1,000 ML FS SCH (06:45)
[2022-10-12] MEDS ORDERED: Thrombin 5000 UNITS/5 ML VIAL ONE (07:16)
[2022-10-12] MEDS ORDERED: Norepinephrine 4 MG/4 ML VIAL ONE (07:16)
[2022-10-12] MEDS ORDERED: Protamine Sulfate 250 MG/25 ML VIAL ONE (07:16)
[2022-10-12] MEDS ORDERED: Aminocaproic Acid 5 GM/20 ML VIAL ONE (07:16)
[2022-10-12] MEDS ORDERED: Calcium Chloride 1 GM/10 ML Abboject SYRINGE ONE (07:16)
[2022-10-12] MEDS ORDERED: Rocuronium Bromide 10 MG/ML (10ML VIAL) ONE (07:16)
[2022-10-12] MEDS ORDERED: Magnesium Sulfate 1 GM/2 ML VIAL ONE (07:16)
[2022-10-12] MEDS ORDERED: Heparin 5,000 UNITS/ML VIAL ONE (07:16)
[2022-10-12] MEDS ORDERED: Mannitol 12.5 GM/50 ML ONE (07:16)
[2022-10-12] MEDS ORDERED: Sodium Bicarb 50 MEQ/50 ML Abboject 8.4% SYRINGE ONE (07:16)
[2022-10-12] MEDS ORDERED: Heparin 30,000 units/30 ml VIAL ONE (07:16)
[2022-10-12] MEDS ORDERED: Lidocaine 2% PF 100 mg/5 ml Syringe ONE (07:16)
[2022-10-12] MEDS ORDERED: Cardioplegic Soln 1,000 ML BAG ONE (07:16)
[2022-10-12] MEDS ORDERED: Papaverine 60 MG/2 ML VIAL ONE (07:16)
[2022-10-12] MEDS ORDERED: Sodium Chloride 0.9% 100 ML ONE (07:23)
[2022-10-12] MEDS ORDERED: CEFAZOLIN 2 GM VIAL ONE (07:23)
[2022-10-12 07:42] LABS: SARS-CoV-2 NAA Rapid Test Not Detected (NotDetected)
[2022-10-12] MEDS ORDERED: Ondansetron PF 4 MG/2 ML Vial IVP PRN (11:04)
[2022-10-12] MEDS ORDERED: traMADol HCl 50 MG TAB PO PRN ×2 (11:04)
[2022-10-12] MEDS ORDERED: Guaifenesin DM 100-10/5 ML UDCUP PO PRN (11:04)
[2022-10-12] MEDS ORDERED: NOREPINEPHRINE 8 MG/250 ML-D5W 250 ML IVPB PRN (11:04)
[2022-10-12] MEDS ORDERED: Magnesium 2 GM/50 ML(in water) 2 GM in Premix Bag 1 BAG IVPB SCH (11:04)
[2022-10-12] MEDS ORDERED: Fentanyl 100 MCG/2 ML VIAL SLOW IVP PRN ×2 (11:04)
[2022-10-12] MEDS ORDERED: D5 1/2 NS w/20 mEq KCL 1,000 ML IV SCH (11:04)
[2022-10-12] MEDS ORDERED: hydrALAZINE 20 MG/ML VIAL SLOW IVP PRN (11:04)
[2022-10-12] MEDS ORDERED: Acetaminophen 325 MG TAB PO PRN (11:04)
[2022-10-12] MEDS ORDERED: Bisacodyl 5 MG TAB PO PRN (11:04)
[2022-10-12] MEDS ORDERED: Nitroglycerin 50 MG/250 ML BOT 250 ML IVPB PRN (11:04)
[2022-10-12] MEDS ORDERED: Potassium Chloride 20 MEQ/100 ML PREMIX BAG IVPB PRN (11:04)
[2022-10-12] MEDS ORDERED: Bisacodyl 10 MG SUPP PR PRN (11:04)
[2022-10-12] MEDS ORDERED: Mag-Al 1200 mg/1200 mg/30 ML UDCUP PO PRN (11:04)
[2022-10-12] MEDS ORDERED: Morphine 2 MG/ML VIAL SLOW IVP PRN (11:04)
[2022-10-12] MEDS ORDERED: Phenylephrine 0.25% Nasal Spray 15 ML BOT ONE (11:25)
[2022-10-12 11:26] LABS: Actual Bicarbonate (HCO3a) 20.7 mEq/L (22-28); Base Excess (BEa) -3.4 mEq/L (-2.0 to +3.0); CO2 Tension 34.2 mmHg (35.0-45.0); Calcium, Ionized (arterial) 1.16 mmol/L (1.12-1.30); Carboxyhemoglobin (COHb) 0.3 gm% (0.0-3.0); Hemoglobin (Hb) 13.7 g/dL (14.0-18.0); O2 Tension (PaO2), arterial 116.4 mmHg (> 60.0); Potassium - ABG Lab 4.44 mmol/L (3.70-5.30)
[2022-10-12 11:28] LABS: Puncture Site Arterial Line
[2022-10-12] MEDS ORDERED: NOREPINEPHRINE 8 MG/250 ML-D5W 250 ML ONE (11:28)
[2022-10-12 11:34] LABS: #Eosinphils 0.1 thou/uL (0.0-0.7); #Lymphocytes 1.4 thou/uL (1.20-3.40); #Monocytes 0.4 thou/uL (0.11-0.59); #Neutrophils 9.2 thou/uL (1.40-6.50); %Basophils 0.3 % (0.0-1.0); %Eosinophils 0.7 % (0.0-10.0); %Lymphocytes 12.4 % (21.0-51.0); %Monocytes 3.2 % (0.0-10.0); %Neutrophils 83.4 % (42.0-75.0); Hemoglobin 13.5 g/dL (14.0-18.0); Mean Corpuscular HGB CONC 33.4 g/dL (32.0-36.0); Mean Corpuscular Hemoglobin 32.4 pg (27.0-31.0); Mean Corpuscular Volume 97.1 fl (78.0-98.0); Mean Platelet Volume 8.2 fL (7.4-10.4); Platelet Count 158 10x3/uL (130-400); Red Blood Cell (RBC) Count 4.17 mill/uL (4.70-6.10)
[2022-10-12] MEDS ORDERED: Melatonin 3 MG TAB PO PRN (11:36)
[2022-10-12 11:44] LABS: INR-International Normal Ratio 1.3; PTT 47.3 sec (22.9-36.1); Prothrombin Time 16.7 sec (12.0-14.7)
[2022-10-12] MEDS ORDERED: Dextrose 50% Abboject 50 ML SYRINGE SLOW IVP PRN (11:45)
[2022-10-12] MEDS ORDERED: HUMULIN R 100 UNITS in Sodium Chloride 0.9% 100 ML IVPB SCH (11:45)
[2022-10-12] MEDS ORDERED: Dextrose 5% in Water 1,000 ML IV PRN (11:45)
[2022-10-12 11:51] LABS: Anion Gap 13 mmol/L (10-20); BUN (Urea Nitrogen) 19 mg/dL (8.4-25.7); Calc. Creatinine Clearance 88 mL/min (70-130); Calcium 8.1 mg/dL (7.8-10.44); Carbon Dioxide 21 mmol/L (23-31); Chloride 108 mmol/L (98-107); Estimated GFR 90; Glucose 142 mg/dL (83-110); Potassium 4.5 mmol/L (3.5-5.1); Sodium 137 mmol/L (136-145)
[2022-10-12] MEDS: Insulin Regular 300 UNITS/3 ML VIAL SC PRN ×4 (12:05→23:35)
[2022-10-12] MEDS: Ketorolac Tromethamine 30 MG/ML VIAL IVP SCH ×3 (12:34→23:31)
[2022-10-12 13:38] VITALS: BMI 28.4
[2022-10-12] MEDS: CEFAZOLIN 2 GM in Sodium Chloride 0.9% 100 ML IVPB SCH ×2 (15:20→23:32)
[2022-10-12 16:35] LABS: Actual Bicarbonate (HCO3a) 17.4 mEq/L (22-28); Base Excess (BEa) -5.6 mEq/L (-2.0 to +3.0); CO2 Tension 27.8 mmHg (35.0-45.0); Calcium, Ionized (arterial) 1.16 mmol/L (1.12-1.30); Carboxyhemoglobin (COHb) 0.4 gm% (0.0-3.0); Hemoglobin (Hb) 13.9 g/dL (14.0-18.0); O2 Tension (PaO2), arterial 107.8 mmHg (> 60.0); Potassium - ABG Lab 3.96 mmol/L (3.70-5.30); pH, Arterial 7.42 (7.35-7.45)
[2022-10-12 16:43] LABS: Puncture Site Arterial Line
[2022-10-12 17:02] LABS: Hemoglobin 13.2 g/dL (14.0-18.0)
[2022-10-12 17:19] LABS: Potassium 3.9 mmol/L (3.5-5.1)
[2022-10-12] MEDS: Atorvastatin Calcium 40 MG TAB PO SCH ×2 (20:53→21:08)
[2022-10-12] MEDS: Latanoprost 0.005% Ophth Soln 2.5 ml Bottle EA EYE SCH (20:53)
[2022-10-12] MEDS: Timolol 0.25% Ophth Soln 5 ml Bottle EA EYE SCH (20:53)
[2022-10-12] MEDS ORDERED: Famotidine/PF 20 mg/2ml Vial SLOW IVP SCH (21:00)
[2022-10-13] MEDS: Hetastarch 6% 500 ML 500 ML IVPB PRN ×2 (00:04→04:32)
[2022-10-13 05:18] LABS: #Lymphocytes 0.5 thou/uL (1.20-3.40); #Monocytes 0.7 thou/uL (0.11-0.59); #Neutrophils 8.1 thou/uL (1.40-6.50); %Eosinophils 0.1 % (0.0-10.0); %Lymphocytes 4.9 % (21.0-51.0); %Monocytes 7.1 % (0.0-10.0); %Neutrophils 87.9 % (42.0-75.0); Mean Corpuscular HGB CONC 32.7 g/dL (32.0-36.0); Mean Corpuscular Hemoglobin 32.7 pg (27.0-31.0); Mean Corpuscular Volume 99.8 fl (78.0-98.0); Mean Platelet Volume 8.9 fL (7.4-10.4); Platelet Count 122 10x3/uL (130-400); RBC Distribution Width 12.1 % (11.5-14.5); Red Blood Cell (RBC) Count 3.36 mill/uL (4.70-6.10); White Blood Cell (WBC) Count 9.2 10x3/uL (4.8-10.8)
[2022-10-13 05:29] LABS: Anion Gap 7 mmol/L (10-20); BUN (Urea Nitrogen) 18 mg/dL (8.4-25.7); Calc. Creatinine Clearance 92 mL/min (70-130); Calcium 7.6 mg/dL (7.8-10.44); Carbon Dioxide 24 mmol/L (23-31); Chloride 110 mmol/L (98-107); Estimated GFR 90; Glucose 116 mg/dL (83-110); Potassium 4.3 mmol/L (3.5-5.1); Sodium 137 mmol/L (136-145)
[2022-10-13] MEDS: Ketorolac Tromethamine 30 MG/ML VIAL IVP SCH ×4 (06:17→23:38)
[2022-10-13] MEDS: CEFAZOLIN 2 GM in Sodium Chloride 0.9% 100 ML IVPB SCH (06:18)
[2022-10-13] MEDS: Levothyroxine Sodium 75 MCG TAB PO SCH (06:18)
[2022-10-13] MEDS ORDERED: FLU VACC QS2022-23(65YR UP)/PF 240 MCG/0.7 ML SYRINGE IM ONE (09:00)
[2022-10-13] MEDS: Aspirin 325 MG TAB PO SCH (10:12)
[2022-10-13] MEDS: Magnesium 2 GM/50 ML(in water) 2 GM in Premix Bag 1 BAG IVPB SCH (10:12)
[2022-10-13] MEDS: Timolol 0.25% Ophth Soln 5 ml Bottle EA EYE SCH ×2 (10:13→20:31)
[2022-10-13] MEDS ORDERED: Insulin Glargine 30 UNITS/0.3 ML VIAL SC PRN (11:42)
[2022-10-13] MEDS: Latanoprost 0.005% Ophth Soln 2.5 ml Bottle EA EYE SCH (20:30)
[2022-10-14] MEDS: Levothyroxine Sodium 75 MCG TAB PO SCH (05:31)
[2022-10-14] MEDS: Ketorolac Tromethamine 30 MG/ML VIAL IVP SCH ×3 (05:31→17:46)
[2022-10-14] MEDS: Magnesium 2 GM/50 ML(in water) 2 GM in Premix Bag 1 BAG IVPB SCH (08:22)
[2022-10-14] MEDS: Aspirin 325 MG TAB PO SCH (08:22)
[2022-10-14] MEDS: Timolol 0.25% Ophth Soln 5 ml Bottle EA EYE SCH ×2 (08:22→22:47)
[2022-10-14] MEDS ORDERED: Carvedilol 6.25 MG TAB PO SCH (08:30)
[2022-10-14] MEDS ORDERED: Mineral Oil ENEMA PR PRN (16:12)
[2022-10-14] MEDS ORDERED: diphenhydrAMINE 25 MG CAP PO PRN (16:12)
[2022-10-14] MEDS ORDERED: Bisacodyl 10 MG SUPP PR PRN (16:12)
[2022-10-14] MEDS ORDERED: Nitroglycerin 0.4 MG TAB (25 Tab Bottle) SL PRN (16:12)
[2022-10-14] MEDS ORDERED: Mag-Al 1200 mg/1200 mg/30 ML UDCUP PO PRN (16:12)
[2022-10-14] MEDS ORDERED: Bisacodyl 5 MG TAB PO PRN (16:12)
[2022-10-14] MEDS ORDERED: Guaifenesin DM 100-10/5 ML UDCUP PO PRN (16:12)
[2022-10-14] MEDS ORDERED: Zolpidem Tartrate 5 MG TAB PO PRN (16:12)
[2022-10-14] MEDS: Carvedilol 3.125 MG TAB PO SCH (17:47)
[2022-10-14] MEDS ORDERED: Potassium Chloride 20 MEQ TAB PO SCH ×2 (18:45)
[2022-10-14] MEDS ORDERED: Furosemide 40 MG TAB PO SCH (18:45)
[2022-10-14] MEDS: Latanoprost 0.005% Ophth Soln 2.5 ml Bottle EA EYE SCH (22:46)
[2022-10-15] MEDS: Ketorolac Tromethamine 30 MG/ML VIAL IVP SCH ×3 (00:09→11:14)
[2022-10-15] MEDS: Levothyroxine Sodium 75 MCG TAB PO SCH (06:05)
[2022-10-15] MEDS: Carvedilol 3.125 MG TAB PO SCH ×2 (08:06→18:04)
[2022-10-15] MEDS: Aspirin 81 mg Enteric Coated Tablet PO SCH (08:06)
[2022-10-15] MEDS: Furosemide 40 MG TAB PO SCH (08:06)
[2022-10-15] MEDS: Potassium Chloride 20 MEQ TAB PO SCH (08:07)
[2022-10-15] MEDS: Timolol 0.25% Ophth Soln 5 ml Bottle EA EYE SCH ×2 (08:08→22:00)
[2022-10-15] MEDS: Latanoprost 0.005% Ophth Soln 2.5 ml Bottle EA EYE SCH (21:58)
[2022-10-16] MEDS: Levothyroxine Sodium 75 MCG TAB PO SCH (06:27)
[2022-10-16] MEDS: Carvedilol 3.125 MG TAB PO SCH ×2 (09:58→16:43)
[2022-10-16] MEDS: Furosemide 40 MG TAB PO SCH (09:58)
[2022-10-16] MEDS: Aspirin 81 mg Enteric Coated Tablet PO SCH (09:58)
[2022-10-16] MEDS: Timolol 0.25% Ophth Soln 5 ml Bottle EA EYE SCH ×2 (09:59→21:55)
[2022-10-16] MEDS: Potassium Chloride 20 MEQ TAB PO SCH (09:59)
[2022-10-16] MEDS: Latanoprost 0.005% Ophth Soln 2.5 ml Bottle EA EYE SCH (21:55)
[2022-10-17] MEDS: Levothyroxine Sodium 75 MCG TAB PO SCH (05:51)
[2022-10-17] MEDS: Carvedilol 3.125 MG TAB PO SCH ×2 (08:10→16:06)
[2022-10-17] MEDS: Potassium Chloride 20 MEQ TAB PO SCH (08:10)
[2022-10-17] MEDS: Aspirin 81 mg Enteric Coated Tablet PO SCH (08:10)
[2022-10-17] MEDS: Furosemide 40 MG TAB PO SCH (08:10)
[2022-10-17] MEDS: Timolol 0.25% Ophth Soln 5 ml Bottle EA EYE SCH ×2 (08:11→20:14)
[2022-10-17] MEDS: Latanoprost 0.005% Ophth Soln 2.5 ml Bottle EA EYE SCH (20:14)
[2022-10-18] MEDS: Levothyroxine Sodium 75 MCG TAB PO SCH (05:34)
[2022-10-18] MEDS: Aspirin 81 mg Enteric Coated Tablet PO SCH (08:54)
[2022-10-18] MEDS: Potassium Chloride 20 MEQ TAB PO SCH (08:54)
[2022-10-18] MEDS: Timolol 0.25% Ophth Soln 5 ml Bottle EA EYE SCH ×2 (08:54→22:13)
[2022-10-18] MEDS: Furosemide 40 MG TAB PO SCH (08:54)
[2022-10-18] MEDS: Carvedilol 3.125 MG TAB PO SCH ×2 (08:54→15:54)
[2022-10-18 14:59] LABS: Actual Bicarbonate (HCO3a) 20.9 mEq/L (22-28); Analyzer IN Cardio OR; Base Excess (BEa) -3.6 mEq/L (-2.0 to +3.0); CO2 Tension 36.3 mmHg (35.0-45.0); Calcium, Ionized (arterial) 1.17 mmol/L (1.12-1.30); Carboxyhemoglobin (COHb) 1.4 gm% (0.0-3.0); Hemoglobin (Hb) 14.4 g/dL (14.0-18.0); O2 Tension (PaO2), arterial 279.1 mmHg (> 60.0); Potassium - ABG Lab 3.86 mmol/L (3.70-5.30); pH, Arterial 7.38 (7.35-7.45)
[2022-10-18 14:59] LABS: Actual Bicarbonate (HCO3a) 24.4 mEq/L (22-28); Analyzer IN Cardio OR; Base Excess (BEa) -0.3 mEq/L (-2.0 to +3.0); CO2 Tension 39.7 mmHg (35.0-45.0); Calcium, Ionized (arterial) 0.98 mmol/L (1.12-1.30); Carboxyhemoglobin (COHb) 0.3 gm% (0.0-3.0); Hemoglobin (Hb) 10.1 g/dL (14.0-18.0); O2 Tension (PaO2), arterial 295.4 mmHg (> 60.0); Potassium - ABG Lab 5.39 mmol/L (3.70-5.30); pH, Arterial 7.41 (7.35-7.45)
[2022-10-18 14:59] LABS: Actual Bicarbonate (HCO3a) 23.7 mEq/L (22-28); Analyzer IN Cardio OR; Base Excess (BEa) -1.9 mEq/L (-2.0 to +3.0); CO2 Tension 43.5 mmHg (35.0-45.0); Calcium, Ionized (arterial) 1.15 mmol/L (1.12-1.30); Carboxyhemoglobin (COHb) 0.7 gm% (0.0-3.0); Hemoglobin (Hb) 14.1 g/dL (14.0-18.0); O2 Tension (PaO2), arterial 132.1 mmHg (> 60.0); Potassium - ABG Lab 4.02 mmol/L (3.70-5.30); pH, Arterial 7.36 (7.35-7.45)
[2022-10-18 15:00] LABS: Actual Bicarbonate (HCO3a) 25.4 mEq/L (22-28); Analyzer IN Cardio OR; Base Excess (BEa) 1.5 mEq/L (-2.0 to +3.0); CO2 Tension 37.1 mmHg (35.0-45.0); Calcium, Ionized (arterial) 1.16 mmol/L (1.12-1.30); Carboxyhemoglobin (COHb) 0.2 gm% (0.0-3.0); Hemoglobin (Hb) 8.9 g/dL (14.0-18.0); O2 Tension (PaO2), arterial 297.8 mmHg (> 60.0); Potassium - ABG Lab 4.51 mmol/L (3.70-5.30); pH, Arterial 7.45 (7.35-7.45)
[2022-10-18 15:00] LABS: Actual Bicarbonate (HCO3a) 24.1 mEq/L (22-28); Analyzer IN Cardio OR; Base Excess (BEa) -0.2 mEq/L (-2.0 to +3.0); CO2 Tension 38.3 mmHg (35.0-45.0); Calcium, Ionized (arterial) 1.13 mmol/L (1.12-1.30); Carboxyhemoglobin (COHb) 0.2 gm% (0.0-3.0); Hemoglobin (Hb) 11.5 g/dL (14.0-18.0); Potassium - ABG Lab 4.47 mmol/L (3.70-5.30); pH, Arterial 7.42 (7.35-7.45)
[2022-10-18 15:00] LABS: Actual Bicarbonate (HCO3a) 23.5 mEq/L (22-28); Analyzer IN Cardio OR; Base Excess (BEa) -1.3 mEq/L (-2.0 to +3.0); CO2 Tension 39.9 mmHg (35.0-45.0); Calcium, Ionized (arterial) 1.01 mmol/L (1.12-1.30); Carboxyhemoglobin (COHb) 0.3 gm% (0.0-3.0); Hemoglobin (Hb) 9.9 g/dL (14.0-18.0); pH, Arterial 7.39 (7.35-7.45)
[2022-10-18 15:01] LABS: Puncture Site Arterial Line
[2022-10-18 15:01] LABS: Puncture Site Arterial Line
[2022-10-18 15:01] LABS: Puncture Site Arterial Line
[2022-10-18 15:02] LABS: Puncture Site Arterial Line
[2022-10-18 15:02] LABS: Puncture Site Arterial Line
[2022-10-18 15:03] LABS: Puncture Site Arterial Line
[2022-10-18] MEDS: Latanoprost 0.005% Ophth Soln 2.5 ml Bottle EA EYE SCH (22:13)
[2022-10-18 23:47] VITALS: TEMP 98.2
[2022-10-19 04:01] VITALS: BP 103/66
[2022-10-19] MEDS: Levothyroxine Sodium 75 MCG TAB PO SCH (05:09)
[2022-10-19] MEDS ORDERED: Carvedilol 3.125 MG TAB PO SCH (08:00)
== END 2022-10-19 07:50 | disposition home or self-care (01) | DRG 236 ==
LOC: SURG A 10-12 06:06 → CCU 10-12 11:15 → 2NO 10-14 15:09
PROVIDERS: ADMIT Thoracic Surgery (Cardiothoracic Vascular Surgery); ATTEND Thoracic Surgery (Cardiothoracic Vascular Surgery)
PROC: 02100Z9 Bypass Coronary Artery, One Artery from Left Internal Mammary, Open Approach (ICD-10-PCS; principal; 2022-10-12)
PROC: 021109W Bypass Coronary Artery, Two Arteries from Aorta with Autologous Venous Tissue, Open Approach (ICD-10-PCS; 2022-10-12)
PROC: 06BQ0ZZ Excision of Left Saphenous Vein, Open Approach (ICD-10-PCS; 2022-10-12)
PROC: 5A1221Z Performance of Cardiac Output, Continuous (ICD-10-PCS; 2022-10-12)
PROC: 02L70ZK Occlusion of Left Atrial Appendage, Open Approach (ICD-10-PCS; 2022-10-12)
DX: I25.10 Atherosclerotic heart disease of native coronary artery without angina pectoris (principal); Z20.822 Contact with and (suspected) exposure to COVID-19; I35.0 Nonrheumatic aortic (valve) stenosis; I10 Essential (primary) hypertension; E78.2 Mixed hyperlipidemia; E03.9 Hypothyroidism, unspecified; Z96.653 Presence of artificial knee joint, bilateral; Z96.612 Presence of left artificial shoulder joint; I25.5 Ischemic cardiomyopathy; I45.10 Unspecified right bundle-branch block; Z98.42 Cataract extraction status, left eye; Z98.41 Cataract extraction status, right eye; Z98.52 Vasectomy status; Z79.890 Hormone replacement therapy; Z79.82 Long term (current) use of aspirin; Z79.899 Other long term (current) drug therapy
CPT/HCPCS: 36416; 36430; 71045; 80048; 82805; 85025; 85027; 85610; 85730; 86850; 86900; 86901; 93005; 93010; 93798; 94002; 94150; C1751; J1100; J1642; J1644; J1815; J1885; J2001; J2150; J2250; J2370; J2405; J2440; J2720; J3370; J3475; J3480; J3490; J7620; P9045; S0017; S0028; U0002

== ENCOUNTER 2024-04-27 07:54 | Outpatient (CLI) | payer MEDICARE, OTHER ==
[2024-04-27] MEDS ORDERED: Iopamidol 370 76% 100 ML VIAL ONE (12:32)
== END 2024-04-27 07:55 | disposition home or self-care (01) ==
LOC: BICCT 07:54
PROVIDERS: ATTEND Internal Medicine Cardiovascular Disease
DX: J44.9 Chronic obstructive pulmonary disease, unspecified (principal); R91.1 Solitary pulmonary nodule; J98.4 Other disorders of lung; K44.9 Diaphragmatic hernia without obstruction or gangrene; K76.89 Other specified diseases of liver
CPT/HCPCS: 71260; 82565; Q9967

== ENCOUNTER 2024-05-17 08:00 | Outpatient (CLI) | payer MEDICARE, OTHER | END 2024-05-17 08:01 | disposition home or self-care (01) | LOC: PET 08:00 | PROVIDERS: ATTEND Internal Medicine Critical Care Medicine | DX: R91.1 Solitary pulmonary nodule (principal); K57.90 Diverticulosis of intestine, part unspecified, without perforation or abscess without bleeding | CPT/HCPCS: 78815; A9552 ==

== ENCOUNTER 2024-11-15 07:49 | Outpatient (CLI) | payer MEDICARE, OTHER | END 2024-11-15 07:50 | disposition home or self-care (01) | LOC: BICCT 07:49 | PROVIDERS: ATTEND Internal Medicine Critical Care Medicine | DX: R91.1 Solitary pulmonary nodule (principal) | CPT/HCPCS: 71250 ==

== ENCOUNTER 2025-07-15 07:32 | Outpatient (CLI) | payer MEDICARE, OTHER | END 2025-07-15 07:33 | disposition home or self-care (01) | LOC: BICCT 07:32 | PROVIDERS: ATTEND Internal Medicine Critical Care Medicine | DX: R91.8 Other nonspecific abnormal finding of lung field (principal) | CPT/HCPCS: 71250 ==